=== PATIENT | female | born 1995 | race Caucasian/White ===

== ENCOUNTER 2017-12-31 21:59 | Emergency (ER) | payer BC ==
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
[2017-12-31] MEDS ORDERED: CEPHALEXIN 500 MG CAP PO ONE (22:28)
[2017-12-31] MEDS ORDERED: IBUPROFEN 800 MG TAB PO ONE (22:33)
[2017-12-31 23:22] VITALS: BP 121/67
== END 2017-12-31 23:21 | disposition home or self-care (01) ==
DX: S93.501A Unspecified sprain of right great toe, initial encounter (principal); S90.111A Contusion of right great toe without damage to nail, initial encounter; S90.411A Abrasion, right great toe, initial encounter; V28.0XXA Motorcycle driver injured in noncollision transport accident in nontraffic accident, initial encounter; Y92.410 Unspecified street and highway as the place of occurrence of the external cause; Y99.8 Other external cause status; Y93.55 Activity, bike riding
CPT/HCPCS: L4386